=== PATIENT | male | born 1980 | race Caucasian/White ===

== ENCOUNTER 2019-04-22 18:53 | Inpatient (IN) | payer OTHER ==
[~2019-04-22] VITALS: Ht 172.7 cm; Wt 92.4 kg
--- NOTE | 2019-04-22 19:23 | NUR ---
Pt presents to ed c/o R ACL repair april 11 2019. States pustulent drainage this am w/ mild swelling and redness to R knee, surgical site. States numbness to R foot, at baseline from after sx. Denies febrile s/s. Pt to xr at this time
[2019-04-22 19:28] LABS: BASOPHILS # (AUTO) 0.02 x10^3/uL (0-0.1); BASOPHILS % (AUTO) 0 % (0-1); EOSINOPHILS # (AUTO) 0.01 x10^3/uL (0-0.4); EOSINOPHILS % (AUTO) 0 % (1-7); LYMPHOCYTES % (AUTO) 19 % (22-44); MD NO; MEAN CORPUSCULAR HEMOGLOBIN 31.9 pg (27.5-34.5); MEAN CORPUSCULAR HGB CONC 33.9 g/dL (33.2-36.2); MEAN CORPUSCULAR VOLUME 94.3 fL (81-97); MEAN PLATELET VOLUME 9.1 fL (7.4-10.4); MONOCYTES # (AUTO) 1.17 x10^3/uL (0.2-0.8); MONOCYTES % (AUTO) 9 % (2-9); NEUTROPHILS # (AUTO) 8.92 x10^3/uL (1.8-6.8); NEUTROPHILS % (AUTO) 72 % (42-75); PLATELET COUNT 368 x10^3/uL (130-400); RED BLOOD COUNT 4.43 x10^6/uL (4.38-5.82); RED CELL DISTRIBUTION WIDTH 13.1 % (9.4-14.8)
[2019-04-22 19:39] LABS: ANION GAP 7 mmol/L (5-15); CALCIUM 9.2 mg/dL (8.5-10.1); CHLORIDE 107 mmol/L (98-107); CREATININE 1.03 mg/dL (0.7-1.3)
[2019-04-22] MEDS ORDERED: SODIUM CHLORIDE FLUSH 10ML SYR IVF ONE (20:30)
[2019-04-22] MEDS ORDERED: OXYcodone/APAP 5/325MG TABLET ONE (20:33)
[2019-04-22 20:41] LABS: HCT (SEDRATE) 41.4 % (39.2-51.8)
[2019-04-22] MEDS ORDERED: CEFAZOLIN 1,000 MG IM ONE (21:00)
[2019-04-22] MEDS ORDERED: OXYcodone/APAP 5/325MG TABLET PO ONE (21:00)
--- NOTE | 2019-04-22 21:32 | NUR ---
ERP VERBAL ORDER AT THIS TIME TO HOLD THE ANCEFT THE PT WILL BE A SURGICAL REFERRAL. Addendum: 04/22/19 at 2133 by DANIELITO THE PT WAS INST ON NPO STATUS.
[2019-04-22] MEDS ORDERED: FENTANYL PF 250 MCG/5ML ONE (22:23)
[2019-04-22] MEDS ORDERED: KETOROLAC 30 MG/1 ML ONE (22:29)
[2019-04-22] MEDS ORDERED: METOPROLOL 1 MG/ML, 5ML IV PRN (23:00)
[2019-04-22] MEDS ORDERED: DIPHENHYDRAMINE 50 MG/ML, 1ML IVPush PRN (23:00)
[2019-04-22] MEDS ORDERED: MEPERIDINE/PF 25MG/0.5ML IVPush PRN (23:00)
[2019-04-22] MEDS ORDERED: OXYcodone 5 MG/5 ML ORAL.SOL UDC PO PRN (23:00)
[2019-04-22] MEDS ORDERED: HYDROmorphone 2 MG/ML, 1ML IVPush PRN (23:00)
[2019-04-22] MEDS ORDERED: hydrALAzine 20 MG/ML, 1ML IV PRN (23:00)
[2019-04-22] MEDS ORDERED: PROCHLORPERAZINE 5 MG/ML, 2ML IV PRN (23:00)
[2019-04-22] MEDS ORDERED: HALOPERIDOL 5 MG/ML IV PRN ×2 (23:00)
[2019-04-22] MEDS ORDERED: PROMETHAZINE 25 MG/ML, 1ML IV PRN (23:00)
[2019-04-22] MEDS ORDERED: LABETALOL 5MG/ML, 20ML IV PRN (23:00)
[2019-04-22] MEDS ORDERED: FENTANYL PF 100 MCG/2ML IV PRN (23:00)
[2019-04-22] MEDS ORDERED: PROPOFOL 10 MG/ML, 20ML ONE (23:02)
[2019-04-22] MEDS ORDERED: CEFAZOLIN 1,000 MG ONE (23:02)
[2019-04-22] MEDS ORDERED: SUCCINYLCHOLINE 20 MG/ML, 10ML ONE (23:02)
[2019-04-22] MEDS ORDERED: GLYCOPYRROLATE 0.2MG/1ML, 5ML ONE (23:02)
[2019-04-22] MEDS ORDERED: DEXAMETHASONE 4 MG/ML, 1ML ONE (23:02)
[2019-04-22] MEDS ORDERED: ONDANSETRON 2MG/ML, 2ML ONE (23:02)
[2019-04-22] MEDS ORDERED: ROCURONIUM 10MG/ML,5ML ONE (23:02)
[2019-04-22] MEDS ORDERED: NEOSTIGMINE 1 MG/ML, 10ML ONE (23:02)
[2019-04-22] MEDS ORDERED: MEPERIDINE/PF 25MG/ML,1ML ONE (23:13)
[2019-04-22] MEDS ORDERED: OXYcodone 5 MG/5 ML ORAL.SOL UDC ONE (23:13)
[2019-04-23] MEDS ORDERED: HYDROmorphone 2 MG/ML, 1ML IVPush PRN (01:00)
[2019-04-23] MEDS ORDERED: ACETAMINOPHEN 325 MG TABLET PO PRN (01:30)
[2019-04-23] MEDS ORDERED: OXYcodone/APAP 5/325MG TABLET PO PRN (01:30)
[2019-04-23] MEDS ORDERED: HYDROcodone/APAP 5/325 TABLET PO PRN (01:30)
[2019-04-23] MEDS ORDERED: ONDANSETRON 2MG/ML, 2ML IV PRN (01:30)
[2019-04-23] MEDS ORDERED: D5%-LACTATED RINGERS 1,000 ML IV SCH (01:30)
[2019-04-23] MEDS ORDERED: DIPHENHYDRAMINE 25 MG CAPSULE PO PRN (01:30)
[2019-04-23] MEDS: CEFAZOLIN PMX 2GM/50ML 50 ML IVPB SCH ×2 (02:28→09:35)
[2019-04-23 03:07] VITALS: BP 118/77
[2019-04-23 04:36] VITALS: BP 99/61
[2019-04-23] MEDS ORDERED: SULF1TAB24 PO (09:08)
[2019-04-23 09:53] VITALS: BP 108/69
== END 2019-04-23 11:00 | disposition home or self-care (01) | DRG 857 ==
LOC: ED 21:15 → EDIP 21:20 → ED 21:28 → 4NOR 23:51 → DCLOUNGE 04-23 10:57
PROVIDERS: ADMIT Orthopaedic Surgery; ATTEND Orthopaedic Surgery
PROC: 0JBN0ZZ Excision of Right Lower Leg Subcutaneous Tissue and Fascia, Open Approach (ICD-10-PCS; principal; 2019-04-22 22:00)
DX: T81.49XA Infection following a procedure, other surgical site, initial encounter (principal); L02.415 Cutaneous abscess of right lower limb; L03.115 Cellulitis of right lower limb; T81.41XA Infection following a procedure, superficial incisional surgical site, initial encounter; Y83.8 Other surgical procedures as the cause of abnormal reaction of the patient, or of later complication, without mention of misadventure at the time of the procedure; Y92.89 Other specified places as the place of occurrence of the external cause
CPT/HCPCS: 36415; 80048; 83605; 85025; 85651; 86140; 87040; 87070; 87075; 87077; 87186; 87205; G0378; J0690; J1100; J1885; J2175; J2405; J2704; J2710; J3010; J0330